=== PATIENT | female | born 1945 | race Caucasian/White ===

== ENCOUNTER 2017-06-11 20:41 | Emergency (ER) | payer MEDICAID, MEDICARE ==
[2017-06-11] MEDS ORDERED: hydrOXYzine PAMOATE 25 MG CAPSULE PO STA (21:17)
[2017-06-11] MEDS ORDERED: predniSONE 20 MG TABLET PO STA (21:17)
--- NOTE | 2017-06-11 21:20 | ED Physician Documentation ---
History of Present Illness - Stated complaint Stated Complaint: ALLERGIC REACTION/BEE STING - Chief complaint Chief Complaint: General - History obtained from History obtained from: Patient - History of Present Illness Timing: Other (Stung by a wasp or hornet to the dorsum of the right hand yesterday with progressive swelling and itchiness to the right hand but no systemic symptoms of fevers, sore throat, shortness of breath, or throat swelling.) Review of Systems Constitutional: reports: Reviewed and negative Cardiac: reports: Reviewed and negative Respiratory: reports: Reviewed and negative PD PAST MEDICAL HISTORY - Past Medical History Past Medical History: No - Present Medications Home Medications: Ambulatory Orders Medication Instructions Recorded Confirmed hydrOXYzine PAMOATE [Vistaril] 25 mg PO Q6H PRN #15 capsule 06/11/17 predniSONE [Deltasone] 60 mg PO DAILY 5 Days tablet 06/11/17 - Allergies Allergies/Adverse Reactions: Allergies Allergy/AdvReac Type Severity Reaction Status Date / Time erythromycin base Allergy Anaphylaxis Verified 06/11/17 20:55 Penicillins Allergy Unknown Verified 06/11/17 20:54 - Social History Does the pt smoke?: Yes PD ED PE NORMAL - Vitals Vital signs reviewed: Yes - General General: Alert and oriented X 3, No acute distress - HEENT HEENT: Pharynx benign - Neck Neck: Supple, no meningeal sign, No bony TTP - Respiratory Respiratory: No respiratory distress - Extremities Extremities: Other (Redness with angioedema especially the dorsum of the hand just proximal the wrist on the right with some tiny vesicles near the bite site. ) - Neuro Neuro: Alert and oriented X 3, Normal speech - Psych Psych: Normal mood, Normal affect Results - Vitals Vitals: Vital Signs - 24 hr 06/11/17 20:50 Temperature 36.3 C L Heart Rate 105 H Respiratory 18 Rate Blood Pressure 138/91 H O2 Saturation 96 Oxygen O2 Source Room air Departure - Departure Disposition: Home, Self Care Clinical Impression: Local reaction to bee sting Qualifiers: Encounter type: initial encounter Injury intent: accidental or unintentional Qualified Code(s): T63.441A - Toxic effect of venom of bees, accidental ( unintentional), initial encounter Condition: Good Record reviewed to determine appropriate education?: Yes Instructions: ED Bite Sting Insect Local Allergic React Prescriptions: hydrOXYzine PAMOATE [Vistaril] 25 mg PO Q6H PRN #15 capsule PRN Reason: Itching predniSONE [Deltasone] 60 mg PO DAILY 5 Days tablet Comments: Your blood pressure was elevated today on check into the emergency department. This does not mean that you have hypertension, it is a common phenomenon to come to the emergency department and have elevated blood pressure. I recommend that you see your primary care physician within the week to have it rechecked when you are feeling better.
[2017-06-11] MEDS ORDERED: hydrOXYzine PAMOATE 25 MG CAPSULE ONE (21:45)
[2017-06-11] MEDS ORDERED: predniSONE 20 MG TABLET ONE (21:45)
[2017-06-11 21:52] VITALS: BP 120/85
== END 2017-06-11 21:50 | disposition home or self-care (01) ==
LOC: ED 20:41
DX: T63.441A Toxic effect of venom of bees, accidental (unintentional), initial encounter (principal); R03.0 Elevated blood-pressure reading, without diagnosis of hypertension
CPT/HCPCS: 99282; 99283; A9270; J7512

== ENCOUNTER 2017-09-11 10:25 | Emergency (ER) | payer MEDICARE, MEDICAID ==
[2017-09-11 10:35] VITALS: BP 148/87
--- NOTE | 2017-09-11 11:08 | ED Physician Documentation ---
PD HPI UPPER EXT INJURY - Stated complaint Stated Complaint: LEFT WRIST PX - Chief complaint Chief Complaint: Ext Problem - History obtained from History obtained from: Patient - History of Present Illness Location: Left, Wrist Type of injury: Fall PD PAST MEDICAL HISTORY - Past Medical History Past Medical History: No - Past Surgical History Past Surgical History: No - Present Medications Home Medications: Ambulatory Orders Medication Instructions Recorded Confirmed Naproxen 375 mg PO BID #20 tablet 09/11/17 - Allergies Allergies/Adverse Reactions: Allergies Allergy/AdvReac Type Severity Reaction Status Date / Time erythromycin base Allergy Anaphylaxis Verified 06/11/17 20:55 Penicillins Allergy Unknown Verified 06/11/17 20:54 tetanus and diphtheria Allergy Unknown Verified 09/11/17 10:35 toxoids - Social History Does the pt smoke?: Yes Smoking Status: Current every day smoker Does the pt drink ETOH?: Yes - Immunizations Immunizations are current?: No PD ED PE NORMAL - Vitals Vital signs reviewed: Yes - General General: Alert and oriented X 3, No acute distress, Well developed/nourished - HEENT HEENT: Atraumatic, Ears normal - Neck Neck: Supple, no meningeal sign, No bony TTP - Cardiac Cardiac: RRR, No murmur - Respiratory Respiratory: Clear bilaterally - Abdomen Abdomen: Soft, Non distended - Female Female : Deferred - Rectal Rectal: Deferred - Back Back: No CVA TTP - Derm Derm: Normal color, Warm and dry Results - Vitals Vitals: Vital Signs - 24 hr 09/11/17 10:33 Temperature 36.3 C L Heart Rate 95 Respiratory 17 Rate Blood Pressure 148/87 H O2 Saturation 94 Oxygen O2 Source Room air Departure - Departure Disposition: Home, Self Care Clinical Impression: Thumb tendonitis Thumb pain Qualifiers: Laterality: left Qualified Code(s): M79.645 - Pain in left finger(s) Condition: Stable Record reviewed to determine appropriate education?: Yes Instructions: ED Sprain Finger Follow-Up: Pedro Pablo Richards MD [Provider Admit Priv/Credential] - Prescriptions: Naproxen 375 mg PO BID #20 tablet Comments: Use the thumb splint much of the time for the next week. Use it particularly when doing activities to support and protect the thumb and reduce the motion. I think this is a inflammation of the tendon or ligament of the thumb. Less vigorous use of it with the splint to protect combined with some anti- inflammatories and time should get this better over the next week. Follow-up with orthopedics if not for other alternative treatments. Discharge Date/Time: 09/11/17 11:52
--- NOTE | 2017-09-11 11:08 | XRAY Report ---
EXAM: LEFT WRIST RADIOGRAPHY EXAM DATE: 09/11/2017 10:57 AM. CLINICAL HISTORY: Pain. COMPARISON: None. TECHNIQUE: 3 views. FINDINGS: Bones: No acute fracture. Joints: Moderate to severe degenerative change, most pronounced at the first CMC joint, where there i s joint space narrowing, subchondral sclerosis, and marginal osteophytes. No richelle dislocation. Soft Tissues: Normal. No soft tissue swelling. 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 [facility] Referring Provider Line: [phone] SITE ID: [id number]
== END 2017-09-11 11:52 | disposition home or self-care (01) ==
LOC: ED 10:25
DX: M77.8 Other enthesopathies, not elsewhere classified (principal); M79.645 Pain in left finger(s); W18.39XA Other fall on same level, initial encounter; M19.032 Primary osteoarthritis, left wrist; F17.200 Nicotine dependence, unspecified, uncomplicated
CPT/HCPCS: 99282; 99283

== ENCOUNTER 2018-06-30 08:00 | Outpatient (CLI) | payer MEDICAID ==
[2018-06-30 13:17] LABS: BASOPHILS % (AUTO) 0.5 %; EOSINOPHILS # (AUTO) 0.2 10^3/uL (0.0-0.7); EOSINOPHILS % (AUTO) 2.2 %; HGB - HEMOGLOBIN 14.1 g/dL (12.0-16.0); LYMPHOCYTES # (AUTO) 2.2 10^3/uL (1.5-3.5); LYMPHOCYTES % (AUTO) 28.5 %; MEAN CORPUSCULAR HEMOGLOBIN 29.1 pg (27.0-31.0); MEAN CORPUSCULAR HGB CONC 33.9 g/dL (32.0-36.0); MEAN CORPUSCULAR VOLUME 85.8 fL (81.0-99.0); MEAN PLATELET VOLUME 7.6 fL (7.9-10.8); MONOCYTES # (AUTO) 0.3 10^3/uL (0.0-1.0); MONOCYTES % (AUTO) 4.5 %; NEUTROPHILS # (AUTO) 4.9 10^3/uL (1.5-6.6); NEUTROPHILS % (AUTO) 64.3 %; PLT - PLATELET COUNT 376 10^3/uL (130-450); RED BLOOD COUNT 4.86 10^6/uL (4.20-5.40); RED CELL DISTRIBUTION WIDTH 13.6 % (12.0-15.0); WHITE BLOOD COUNT 7.6 x10^3/uL (4.8-10.8)
[2018-06-30 13:34] LABS: ALBUMIN/GLOBULIN RATIO 1.3 (1.0-2.2); ALKALINE PHOSPHATASE 86 IU/L (42-121); ALT ALANINE AMINOTRANSFERASE 17 IU/L (10-60); AMYLASE 65 U/L (28-100); AST ASPARTATE AMINOTRANSFERASE 18 IU/L (10-42); BILIRUBIN,TOTAL 0.4 mg/dL (0.2-1.0); BUN - BLOOD UREA NITROGEN 10 mg/dL (6-20); CALCIUM 9.1 mg/dL (8.5-10.3); CARBON DIOXIDE - CO2 27 mmol/L (21-32); CHLORIDE 101 mmol/L (101-111); CHOL/HDL RATIO 3.3 (<4.4); CHOLESTEROL 172 mg/dL; CREATININE 0.8 mg/dL (0.4-1.0); GFR - MDRD 71 (>89); GLUCOSE 115 mg/dL (70-100); HDL CHOLESTEROL 52 mg/dL; LDL CHOLESTEROL,CALCULATED 106 mg/dL; LIPASE 26 U/L (22-51); SODIUM 136 mmol/L (135-145); TOTAL PROTEIN 7.2 g/dL (6.7-8.2); VLDL CHOLESTEROL 14 mg/dL
== END 2018-06-30 08:01 | disposition home or self-care (01) ==
LOC: LAB.N 08:00
PROVIDERS: ATTEND Family Medicine
DX: Z00.00 Encounter for general adult medical examination without abnormal findings (principal); R19.4 Change in bowel habit; R10.32 Left lower quadrant pain
CPT/HCPCS: 36415; 80053; 80061; 82150; 83690; 83721; 85025; 85651